=== PATIENT | female | born 1980 | race Hispanic/Latino ===

== ENCOUNTER 2019-11-28 20:27 | Emergency (ER) | payer OTHER, SELFPAY ==
--- NOTE | ~2019-11-28 | XR_ITS ---
XR hand LT min 3V 11/28/2019 21:14 INDICATION: Left hand pain PROCEDURE: 3 views left hand COMPARISON: No prior studies for comparison. FINDINGS: Fracture, dislocation or subluxation is not identified. There is soft tissue swelling dorsa l to the metacarpals. No foreign bodies are identified. IMPRESSION: 1: NO ACUTE BONE OR JOINT ABNORMALITY IDENTIFIED. Reviewed, dictated and finalized at location A.
[2019-11-28 20:30] VITALS: BP 153/102; PULSE 78; RESP 15; TEMP 37.1; O2SAT 100
--- NOTE | 2019-11-28 21:23 | ED.FALL ---
HPI - Fall General Chief Complaint: Fall Stated Complaint: fall, left wrist pain Time Seen by Provider: 11/28/19 20:43 History of Present Illness HPI Narrative: Patient is a 39-year-old female who presents ER after a fall down 15-20 stairs. The gentleman was trying to move a large appliance for her, it was at the top of the stairs, the person moving it had on a feliciano and was below it, and she was behind him. Gentleman lost balance and she reached forward to study the appliance. They then both fell down the stairs with him landing on top of her. She did not lose consciousness. She did not get struck by the appliance. She was placed in a c-collar as a precaution. She reports pain and swelling to the dorsal aspect of the left hand with slight abrasion. No numbness or tingling. No neck pain. Slight achiness right low back. No additional complaints. Related Data Allergies Allergy/AdvReac Type Severity Reaction Status Date / Time erythromycin base Allergy Unknown RED RASH Verified 05/21/18 21:32 Penicillins Allergy Unknown WAS A CHILD Verified 11/05/18 14:52 Sulfa (Sulfonamide Allergy Unknown LOW HR, Verified 11/05/18 14:52 Antibiotics) LOW PLATELETS vancomycin Allergy Unknown RED RASH Verified 05/21/18 21:32 Review of Systems Review of Systems: All systems reviewed & are unremarkable except as noted in HPI and below Eyes: Eyes: Denies change in vision Cardiovascular: Cardiovascular: Denies chest pain and Denies radiating jaw, neck or arm pain Respiratory: Respiratory: Denies cough and Denies dyspnea Gastrointestinal: Gastrointestinal: Denies abdominal pain, Denies nausea and Denies vomiting Musculoskeletal: Musculoskeletal: Reports back pain (Right side paraspinal) and Denies joint swelling Comments: Right hand pain and swelling Integumentary/Breasts: Comments: Abrasion right hand Neurologic: Denies syncope, Denies headache(s), Denies focal weakness and Denies numbness PMFSH Past Medical History Medical History (Updated 11/28/19 @ 23:14 by Julius Louie MD) GERD (gastroesophageal reflux disease) Hypertension Surgical History Surgical History (Updated 11/28/19 @ 21:26 by Julius Louie MD) History of Family History Family History (Updated 11/03/18 @ 14:13 by DOCTOR UNKNOWN) Mother Hypertension Cerebrovascular accident Family history of arthritis Sibling Asthma Father Acute myocardial infarction Cerebrovascular accident Other Family history of Alzheimer's disease Family history of allergic disorder Social History Social History Smoking status: Former smoker Smoking end date: 05/25/14 Alcohol intake: current Exam Narrative: Exam Narrative: GENERAL: Well-appearing, well-nourished, and in no acute distress. HEAD: Normocephalic, atraumatic. ENT: Mucous membranes moist. NECK: Supple. Full range of motion without tenderness palpation of the midline cervical spine. CHEST: Clear to auscultation. No respiratory distress. No chest wall tenderness. HEART: Regular rate and rhythm. Normal peripheral pulses. ABDOMEN: Soft, nontender, nondistended. No visible evidence of trauma to the abdomen. EXTREMITIES: Slight swelling of the dorsum of the left hand with bruising, normal range of motion at the fingers/wrist normal strength in the left upper extremity. No other extremity injury. Back: No midline tenderness of thoracic or lumbar spine. There is mild discomfort near L5 lateral to midline on the right side without bruising or abrasion. SKIN: Warm, dry, no rash. NEURO: Alert and oriented x3. Course Course Emergency Course: Informed of results. D/c. Vital Signs Vital signs: Vital Signs Temperature 98.7 F 11/28/19 20:30 Pulse Rate 78 11/28/19 20:30 Respiratory Rate 15 11/28/19 20:30 Blood Pressure 153/102 H 11/28/19 20:30 Pulse Oximetry 100 11/28/19 20:30 Temperature 98.7 F 11/28/19 20:30 Pulse Rate 78 11/28/19 20:30 Respirat
[2019-11-28 23:32] VITALS: BP 149/92; PULSE 78; RESP 18; O2SAT 97
== END 2019-11-28 23:34 | disposition home or self-care (01) ==
PROVIDERS: Emergency Provider Emergency Medicine; PCP Internal Medicine
DX: S60.222A Contusion of left hand, initial encounter (principal); K21.9 Gastro-esophageal reflux disease without esophagitis; I10 Essential (primary) hypertension; W10.9XXA Fall (on) (from) unspecified stairs and steps, initial encounter; Z87.891 Personal history of nicotine dependence
CPT/HCPCS: 73130; 99283; L0140

== ENCOUNTER 2020-05-11 15:10 | Outpatient (CLI) | payer OTHER, SELFPAY ==
[2020-05-11 16:46] LABS: HIV 1/2 Ab P24 Ag Result Negative (Negative)
== END 2020-05-11 15:11 | disposition home or self-care (01) ==
LOC: ANHLAB 15:15
PROVIDERS: PCP Internal Medicine; Visit Provider Nurse Practitioner Family
DX: Z11.3 Encounter for screening for infections with a predominantly sexual mode of transmission (principal)
CPT/HCPCS: 36415; 86703; G0432

== ENCOUNTER 2020-05-14 15:01 | Outpatient (CLI) | payer OTHER, SELFPAY ==
[2020-05-14 18:50] LABS: Hepatitis B Surface Antigen Negative (Negative)
[2020-05-14 18:55] LABS: HAV RESULT Negative (Negative); Hepatitis B Core IgM Result Negative (Negative)
[2020-05-14 19:04] LABS: HIV 1/2 Ab P24 Ag Result Negative (Negative)
[2020-05-14 19:07] LABS: Hepatitis C Virus Antibody Negative (Negative)
[2020-05-15 09:26] LABS: Rapid Plasma Reagin Non-Reactive (NonReactive)
== END 2020-05-14 15:02 | disposition home or self-care (01) ==
LOC: ANHLAB 15:04
PROVIDERS: PCP Internal Medicine; Visit Provider Nurse Practitioner Family
DX: Z11.3 Encounter for screening for infections with a predominantly sexual mode of transmission (principal)
CPT/HCPCS: 36415; 80074; 86592; 86695; 86696; 86703; G0432

== ENCOUNTER 2021-05-26 13:56 | Emergency (ER) | payer OTHER, SELFPAY ==
--- NOTE | ~2021-05-26 | XR_ITS ---
EXAMINATION: XR chest 2V DATE: 05/26/2021 15:40 INDICATION: Cough. COVID-19 pneumonia. TECHNIQUE: Frontal and lateral views of the chest were obtained. COMPARISON: Chest 2 views 08/01/2017 FINDINGS: The chest demonstrates clear lungs without pneumonia, pleural effusion, or pneumothorax. Th e heart size is normal. IMPRESSION: 1. No acute cardiopulmonary disease. Reviewed, dictated and finalized at location A. [employer]
[2021-05-26 14:32] VITALS: BP 137/90; PULSE 84; RESP 16; TEMP 36.3; O2SAT 100
--- NOTE | 2021-05-26 15:32 | ED.GENADULT ---
HPI - General Adult General Chief complaint: Upper Respiratory Infection Stated complaint: cough,diarrhea,loss of taste and smell Source: patient Mode of arrival: ambulatory Limitations: no limitations History of Present Illness HPI narrative: Patient presents for evaluation of respiratory symptoms for last 6 days. She initially had a sore throat and developed a headache, cough and diarrhea. She has fluctuated between hot flashes and chills. She has experienced some nausea. She had an episode of vomiting that she attributes to taking abx on empty stomach. She has a hx of recurrent abscess formations. She was recently on doxycycline. She has completed that therapy. She does not have an abscess at the present time. She has diminished sense of smell and taste. She spent the holidays with her family and her sister, with whom she spent time, has influenza. She does smoke a 1/4 pack per day. She has received [employer] vaccination Related Data Home Medications Medication Instructions Recorded Confirmed lisinopril-hydrochlorothiazide 1 tablet PO DAILY 05/26/21 05/26/21 omeprazole 20 mg PO DAILY 05/26/21 05/26/21 Allergies Allergy/AdvReac Type Severity Reaction Status Date / Time erythromycin base Allergy Unknown RED RASH Verified 05/26/21 14:30 Penicillins Allergy Unknown WAS A CHILD Verified 05/26/21 14:30 Sulfa (Sulfonamide Allergy Unknown LOW HR, Verified 05/26/21 14:30 Antibiotics) LOW PLATELETS vancomycin Allergy Unknown RED RASH Verified 05/26/21 14:30 Review of Systems Review of Systems: CONSTITUTIONAL: Reports hot flashes and chills. Denies objective fever. EYES: Denies visual changes, redness, or discharge. ENT: Reports sore throat. Denies congestion. CARDIOVASCULAR: Denies chest pain, palpitations, or edema. RESPIRATORY: Reports cough. Denies shortness of breath. GASTROINTESTINAL: Reports nausea with one episode of vomiting. Reports diarrhea. Denies abdominal pain. GENITOURINARY: Denies dysuria or hematuria. SKIN: Denies rash or itching. MUSCULOSKELETAL: Denies back pain, joint pain, or myalgia. NEUROLOGIC: Denies headache, numbness, dizziness, or weakness. PSYCHIATRIC: Denies anxiety or depression. [facility] Past Medical History Medical History GERD (gastroesophageal reflux disease) Hypertension Surgical History Surgical History History of Family History Family History Mother Hypertension Cerebrovascular accident Family history of arthritis Sibling Asthma Father Acute myocardial infarction Cerebrovascular accident Other Family history of Alzheimer's disease Family history of allergic disorder Social History Social History Smoking status: Former smoker Smoking end date: 05/25/14 Alcohol intake: current Exam Narrative: GENERAL: Well-appearing, well-nourished, and in no acute distress. HEAD: Normocephalic, atraumatic. EYES: PERRLA and EOMI. ENT: Nares clear, no rhinorrhea or epistaxis. Mucous membranes moist. Oropharynx without tonsillar hypertrophy exudate or other lesions. Bilateral TMs pearly mary nonbulging NECK: Supple. No adenopathy or masses. No carotid bruits or JVD CHEST: Clear to auscultation. No respiratory distress. No wheezes rales or rhonchi HEART: Regular rate and rhythm. No murmur heard. Normal peripheral pulses. ABDOMEN: Soft, nontender, nondistended, normal active bowel sounds. EXTREMITIES: Normal range of motion. No edema. SKIN: Warm, dry, no rash. NEURO: No focal deficits. Alert and oriented x3. PSYCH: Normal mood and affect. Course Course Emergency Course: This is a 40-year-old female who presented with complaints of respiratory symptoms. Rapid Covid was positive, strep and flu were negative. C
== END 2021-05-26 16:00 | disposition home or self-care (01) ==
PROVIDERS: Emergency Provider Nurse Practitioner; PCP Nurse Practitioner Family
DX: U07.1 COVID-19 (principal); Z87.891 Personal history of nicotine dependence; K21.9 Gastro-esophageal reflux disease without esophagitis; I10 Essential (primary) hypertension
CPT/HCPCS: 71046; 87081; 87426; 87804; 87880; 99213; C9803; G0463

== ENCOUNTER → 2021-06-12 01:18 | Outpatient (CLI) | payer OTHER, SELFPAY ==
[2021-06-12 21:10] LABS: SARS-CoV-2 RNA PCR Negative
== END ==
PROVIDERS: PCP Nurse Practitioner Family; Visit Provider Nurse Practitioner Family
DX: Z20.822 Contact with and (suspected) exposure to COVID-19 (principal)
CPT/HCPCS: C9803; U0003; U0005

== ENCOUNTER 2022-02-03 19:01 | Emergency (ER) | payer OTHER, SELFPAY ==
[2022-02-03 19:13] VITALS: BP 152/100; PULSE 96; RESP 16; TEMP 36.6; O2SAT 100
--- NOTE | 2022-02-03 21:51 | ED.DENTAL ---
HPI - Dental/Oral General Chief complaint: Dental/Oral Stated complaint: dental absess Time Seen by Provider: 02/03/22 21:39 History of Present Illness HPI Narrative: Patient is a 41-year-old female who presents ER with dental pain. Left lower jaw lateral of tooth #19. No fever chills or sweats. No difficulty breathing or swallowing. Had taken a course of doxycycline without improvement. She does not have a dentist. Related Data Home Medications Medication Instructions Recorded Confirmed lisinopril 20 1 tablet PO DAILY 05/26/21 05/26/21 mg-hydrochlorothiazide 25 mg tablet omeprazole 20 mg capsule,delayed 20 mg PO DAILY 05/26/21 05/26/21 release Allergies Allergy/AdvReac Type Severity Reaction Status Date / Time erythromycin base Allergy Unknown RED RASH Verified 05/26/21 14:30 Penicillins Allergy Unknown WAS A CHILD Verified 05/26/21 14:30 Sulfa (Sulfonamide Allergy Unknown LOW HR, Verified 05/26/21 14:30 Antibiotics) LOW PLATELETS vancomycin Allergy Unknown RED RASH Verified 05/26/21 14:30 Review of Systems Constitutional: Constitutional: Denies chills and Denies fever(s) ENT: Denies dysphagia, Denies nasal congestion and Denies sore throat Comments: Dental pain PMFSH Past Medical History Medical History GERD (gastroesophageal reflux disease) Hypertension Surgical History Surgical History History of Family History Family History Mother Hypertension Cerebrovascular accident Family history of arthritis Sibling Asthma Father Acute myocardial infarction Cerebrovascular accident Other Family history of Alzheimer's disease Family history of allergic disorder Social History Social History Smoking status: Former smoker Smoking end date: 05/25/14 Alcohol intake: current Exam Narrative: GENERAL: Well-appearing, well-nourished, and in no acute distress. HEAD: Normocephalic, atraumatic. ENT: Mucous membranes moist. Slight swelling left lower jaw and fullness near tooth #19 with tenderness. NECK: Supple. NEURO: Alert and oriented x3. PSYCH: Normal mood and affect. Course Course Emergency Course: Will place patient on cephalexin. Discussed that she needs to follow-up with a dentist Vital Signs Vital signs: Vital Signs Temperature 97.8 F 02/03/22 19:13 Pulse Rate 96 02/03/22 19:13 Respiratory Rate 16 02/03/22 19:13 Blood Pressure 152/100 H 02/03/22 19:13 Pulse Oximetry 100 02/03/22 19:13 Oxygen Delivery Room Air 02/03/22 19:13 Temperature 97.8 F 02/03/22 19:13 Pulse Rate 96 02/03/22 19:13 Respiratory Rate 16 02/03/22 19:13 Blood Pressure 152/100 H 02/03/22 19:13 Pulse Oximetry 100 02/03/22 19:13 Oxygen Delivery Room Air 02/03/22 19:13 Discharge Plan Discharge Clinical Impression: Abscess, dental Patient Disposition: Home, Self-Care Condition: Stable Instructions: Antibiotic Form, Dental Abscess (ED) Additional Instructions: Return to the ER if you have fever over 100.4 ?F, you cannot keep down food or water, you have chest pain or shortness of breath, you have additional concerns. Please follow-up with a dentist. Prescriptions: New cephalexin 500 mg capsule 500 mg PO Q12H Qty: 14 0RF No Action omeprazole 20 mg capsule,delayed release(DR/EC) 20 mg PO DAILY lisinopril-hydrochlorothiazide 20-25 mg tablet 1 tablet PO DAILY benzonatate 100 mg capsule 100 mg PO BID PRN (Reason: cough) Qty: 20 0RF ondansetron HCl [Zofran] 4 mg tablet 4 mg PO Q8H PRN (Reason: nausea and vomiting) Qty: 15 0RF Follow-up/Referrals: Dental Referral Line [Outside] - 1 Week Hoplori,Maureen Cook APRN [Primary Care Provider] -
[2022-02-03] MEDS: CEPHALEXIN 500 MG CAPSULE PO (21:52)
== END 2022-02-03 21:58 | disposition home or self-care (01) ==
PROVIDERS: Emergency Provider Emergency Medicine; PCP Nurse Practitioner Family
DX: K04.7 Periapical abscess without sinus (principal); K21.9 Gastro-esophageal reflux disease without esophagitis; I10 Essential (primary) hypertension
CPT/HCPCS: 99283; A9270

== ENCOUNTER 2023-01-22 09:53 | Emergency (ER) | payer OTHER, SELFPAY ==
[2023-01-22 10:25] VITALS: BP 145/89; PULSE 92; RESP 19; TEMP 36.3; O2SAT 99
[2023-01-22 12:03] LABS: Influenza A QL RT-PCR Negative (Negative); Influenza B QL RT-PCR Negative (Negative); RSV RNA, RT-PCR Negative (Negative); SARS-CoV-2 RNA PCR Positive (Negative)
--- NOTE | 2023-01-22 12:06 | ED.GENADULT ---
HPI - General Adult General Chief complaint: Upper Respiratory Infection Stated complaint: covid+ Time Seen by Provider: 01/22/23 10:18 Source: patient Mode of arrival: ambulatory Limitations: no limitations History of Present Illness HPI narrative: This is a 42-year-old female who presents to the ED with chief complaint of acute URI symptoms for the past few days. Her daughter was positive for COVID recently. Patient states she had a positive home COVID test today. Reports she has runny nose, congestion, sore throat and cough. Denies fevers, chills, abdominal pain, nausea, vomiting, chest pain, shortness of breath. She is seeking a work note. Related Data Home Medications Medication Instructions Recorded Confirmed lisinopril 20 1 tablet PO DAILY 05/26/21 05/22/22 mg-hydrochlorothiazide 25 mg tablet omeprazole 20 mg capsule,delayed 20 mg PO DAILY 05/26/21 05/22/22 release Allergies Allergy/AdvReac Type Severity Reaction Status Date / Time erythromycin base Allergy Unknown RED RASH Verified 01/22/23 11:48 Penicillins Allergy Unknown WAS A CHILD Verified 01/22/23 11:48 Sulfa (Sulfonamide Allergy Unknown LOW HR, Verified 01/22/23 11:48 Antibiotics) LOW PLATELETS vancomycin Allergy Unknown RED RASH Verified 01/22/23 11:48 Review of Systems Review of Systems: All systems as dictated in [facility] Past Medical History Medical History GERD (gastroesophageal reflux disease) Hypertension Surgical History Surgical History History of Family History Family History Mother Hypertension Cerebrovascular accident Family history of arthritis Sibling Asthma Father Acute myocardial infarction Cerebrovascular accident Other Family history of Alzheimer's disease Family history of allergic disorder Social History Social History (Updated 05/22/22 @ 15:07 by Isis Aparicio MA) Years smoked: 14 Smoking status: Former smoker Tobacco type: cigarettes Smoking end date: 05/25/14 Alcohol intake: current Alcohol use details: occasionally Substance use: never Living arrangements: with family Occupation/Education: occupation Additional occupation/education comments: [employer] Gender identity (if verbalized by the patient): Female Sexual Orientation (if Verbalized by the Patient): Straight or Heterosexual Exam Narrative: GENERAL: Well-appearing, well-nourished, and in no acute distress. HEAD: Normocephalic, atraumatic. EYES: PERRLA and EOMI. ENT: Nares clear, no rhinorrhea or epistaxis. Mucous membranes moist. Oropharynx without tonsillar hypertrophy exudate or other lesions. NECK: Supple. No adenopathy or masses. CHEST: No respiratory distress. Clear to auscultation. No wheezes rales or rhonchi. 99% on room air. HEART: Regular rate and rhythm. No murmur heard. Normal peripheral pulses. ABDOMEN: Soft, nontender, nondistended, normal active bowel sounds. MSK: Normal range of motion. No edema. SKIN: Warm, dry, no rash. NEURO: Alert and oriented x3. No focal deficits. PSYCH: Normal mood and affect. Course Vital Signs Vital signs: Vital Signs Temperature 97.4 F L 01/22/23 10:25 Pulse Rate 92 01/22/23 10:25 Respiratory Rate 19 01/22/23 10:25 Blood Pressure 145/89 H 01/22/23 10:25 Pulse Oximetry 99 01/22/23 10:25 Oxygen Delivery Room Air 01/22/23 10:25 Temperature 97.4 F L 01/22/23 10:25 Pulse Rate 92 01/22/23 10:25 Respiratory Rate 19 01/22/23 10:25 Blood Pressure 145/89 H 01/22/23 10:25 Pulse Oximetry 99 01/22/23 10:25 Oxygen Delivery Room Air 01/22/23 11:45 Medical Decision Making [facility] Narrative Medical decision making narrative: This is a 42-year-old female who presents to the ED with chief complaint of viral U
== END 2023-01-22 13:05 | disposition home or self-care (01) ==
PROVIDERS: Emergency Provider Physician Assistant; PCP Nurse Practitioner Family
DX: U07.1 COVID-19 (principal); I10 Essential (primary) hypertension; K21.9 Gastro-esophageal reflux disease without esophagitis; Z87.891 Personal history of nicotine dependence
CPT/HCPCS: 87637; 99283

== ENCOUNTER 2023-01-26 13:26 | Emergency (ER) | payer OTHER, SELFPAY ==
--- NOTE | ~2023-01-26 | XR_ITS ---
EXAMINATION: XR chest 2V DATE: 01/26/2023 14:31 INDICATION: Chest pain TECHNIQUE: PA and lateral views of the chest are obtained. COMPARISON: 05/26/2021 FINDINGS: The lungs are free of acute opacities. No pleural effusion or pneumothorax. The cardiomedia stinal silhouette is normal. There is moderate thoracic spondylosis. IMPRESSION: 1. No acute cardiopulmonary abnormality. Reviewed, dictated and finalized at location A.
--- NOTE | 2023-01-26 13:27 | ECG_ITS ---
Measurements Intervals [place] Rate: 89 P: 36 MN: 153 QRS: 41 QRSD: 91 T: 21 QT: 350 QTc: 427 Interpretive Statements SINUS RHYTHM POSSIBLE LEFT ATRIAL ENLARGEMENT MINIMAL Q WAVES- INFERIOR LEADS BORDERLINE ECG COMPARED TO ECG 11/08/2018 16:02:51 NO SIGNIFICANT CHANGES Electronically Signed On 01-27-2023 6:58:45 CDT by Imer Brennan D.O.
[2023-01-26 13:37] VITALS: BP 117/77; PULSE 91; RESP 16; TEMP 36.8; O2SAT 99
[2023-01-26 14:04] LABS: Basophils Percent Auto 0.3 % (0.2-1.2); Eosinophils Absolute Auto 0.1 K/mm3 (0-0.3); Hematocrit 43.3 % (37.0-47.0); Hemoglobin 14.8 g/dL (12.0-15.0); Immature Granulocyte Absolute 0.01 K/mm3 (0.00-0.031); Immature Granulocyte Percent A 0.3 % (0-0.5); Lymphocytes Absolute Auto 1.86 K/mm3 (0.9-3.2); Lymphocytes Percent Auto 61.6 % (18.3-44.2); Mean Corpuscular HGB Conc 34.2 g/dl (32-36); Mean Corpuscular Volume 87.7 fl (80-100); Mean Platelet Volume 10.2 fl (7.4-10.4); Monocytes Absolute Auto 0.1 K/mm3 (0.1-0.6); Neutrophils Absolute Auto 0.9 K/mm3 (1.3-6.7); Neutrophils Percent Auto 30.8 % (45.5-73.1); Platelet Count Result 198 k/mm3 (150-375); Red Blood Count 4.94 M/mm3 (4.2-5.4); Red Cell Distribution Width 12.8 % (11.5-14.5)
[2023-01-26 14:14] LABS: Alanine Aminotransferase 27 U/L (6-35); Albumin Level 4.6 g/dL (3.5-5.1); Alkaline Phosphatase 52 U/L (38-126); Anion Gap 12 mmol/L (8-16); Aspartate Amino Transferase 29 U/L (14-36); Bilirubin,Total 0.7 mg/dL (0.2-1.3); Blood Urea Nitrogen 11 mg/dL (7-17); Calcium 9.2 mg/dL (8.4-10.2); Carbon Dioxide 25 mmol/L (22-30); Chloride 100 mmol/L (98-107); Estimated CRCL calculation 87 ml/min; Estimated Glomerular Filt Rate > 60; Glucose 131 mg/dL (65-110); Lipase 71 U/L (23-300); Potassium 3.1 mmol/L (3.4-5.0); Sodium 137 mmol/L (137-145)
[2023-01-26 14:25] LABS: Troponin I < 0.012 ng/mL (0.000-0.034)
[2023-01-26 14:27] LABS: INR 0.9; Partial Thromboplastin Time 24.5 SECONDS (22.3-36.8); Prothrombin Time 12.7 Seconds (11.1-14.7)
[2023-01-26 14:33] VITALS: PULSE 88; O2SAT 99
[2023-01-26 14:35] VITALS: BP 108/85; PULSE 87; RESP 16; O2SAT 96
[2023-01-26] MEDS: ASPIRIN 81 MG CHEWABLE TABLET 324 MG PO (14:38)
--- NOTE | 2023-01-26 16:26 | ED.GENADULT ---
HPI - General Adult General Chief complaint: Chest Pain Stated complaint: chest pain Time Seen by Provider: 01/26/23 14:21 History of Present Illness HPI narrative: Patient is a 42-year-old female who presents ER with left-sided chest pain. Occurred yesterday and was sharp and intense and lasted for 12 seconds. She had an additional bout today that was less intense but continue to wear your her. Patient has had COVID for the last 5 to 7 days. No fevers or chills or sweats. No productive cough. No hemoptysis. She is found no modifying factors. She reports she was quite anxious when she had this pain and had been busy cleaning things. No personal history of heart disease. Related Data Home Medications Medication Instructions Recorded Confirmed lisinopril 20 1 tablet PO DAILY 05/26/21 05/22/22 mg-hydrochlorothiazide 25 mg tablet omeprazole 20 mg capsule,delayed 20 mg PO DAILY 05/26/21 05/22/22 release Allergies Allergy/AdvReac Type Severity Reaction Status Date / Time erythromycin base Allergy Unknown RED RASH Verified 01/26/23 14:40 Penicillins Allergy Unknown WAS A CHILD Verified 01/26/23 14:40 Sulfa (Sulfonamide Allergy Unknown LOW HR, Verified 01/26/23 14:40 Antibiotics) LOW PLATELETS Review of Systems Review of Systems: All systems reviewed & are unremarkable except as noted in HPI and below Constitutional: Constitutional: Denies chills, Denies fatigue and Denies fever(s) ENT: Denies nasal congestion and Denies sore throat Cardiovascular: Cardiovascular: Reports chest pain, Denies rapid heart rate and Denies radiating jaw, neck or arm pain Respiratory: Respiratory: Denies cough and Denies dyspnea Gastrointestinal: Gastrointestinal: Denies abdominal pain, Denies nausea and Denies vomiting [facility] Past Medical History Medical History GERD (gastroesophageal reflux disease) Hypertension Surgical History Surgical History History of Family History Family History Mother Hypertension Cerebrovascular accident Family history of arthritis Sibling Asthma Father Acute myocardial infarction Cerebrovascular accident Other Family history of Alzheimer's disease Family history of allergic disorder Social History Social History (Updated 05/22/22 @ 15:07 by Isis Aparicio MA) Years smoked: 14 Smoking status: Former smoker Tobacco type: cigarettes Smoking end date: 05/25/14 Alcohol intake: current Alcohol use details: occasionally Substance use: never Living arrangements: with family Occupation/Education: occupation Additional occupation/education comments: [employer] Gender identity (if verbalized by the patient): Female Sexual Orientation (if Verbalized by the Patient): Straight or Heterosexual Exam Narrative: GENERAL: Well-appearing, well-nourished, and in no acute distress. HEAD: Normocephalic, atraumatic. CHEST: Clear to auscultation. No respiratory distress. HEART: Regular rate and rhythm. Normal peripheral pulses. ABDOMEN: Soft, nontender, nondistended. EXTREMITIES: Normal range of motion. No edema. SKIN: Warm, dry, no rash. NEURO: Alert and oriented x3. PSYCH: Normal mood and affect. Course Course Emergency Course: Patient resting comfortably. No pain while she was here. Troponin negative. No tachycardia or hypoxia. Patient was without hemoptysis. No pain with deep breath. Patient felt to have a PE. Chest x-ray without pneumonia. Symptoms likely related to pleurisy or musculoskeletal chest pain. Discussed anti-inflammatory medications for home. Discharge. Vital Signs Vital signs: Vital Signs Temperature 98.2 F 01/26/23 13:37 Pulse Rate 91 01/26/23 13:37 Respiratory Rate 16 01/26/23 13:37 Blood Pressure 117/77
[2023-01-26 16:34] VITALS: BP 107/78; PULSE 76; RESP 18; O2SAT 99
== END 2023-01-26 16:36 | disposition home or self-care (01) ==
PROVIDERS: Emergency Provider Emergency Medicine; PCP Nurse Practitioner Family
DX: R09.1 Pleurisy (principal); K21.9 Gastro-esophageal reflux disease without esophagitis; I10 Essential (primary) hypertension
CPT/HCPCS: 36415; 71046; 80053; 83690; 84484; 85025; 85610; 85730; 93005; 99284; A9270

== ENCOUNTER 2023-07-08 20:52 | Emergency (ER) | payer OTHER, SELFPAY ==
[2023-07-08 21:10] VITALS: BP 150/98; PULSE 88; RESP 15; TEMP 36.3; O2SAT 100
--- NOTE | 2023-07-08 23:03 | ED.GENADULT ---
HPI - General Adult General Chief complaint: Dental/Oral Stated complaint: dental pain Time Seen by Provider: 07/08/23 22:39 Source: patient Mode of arrival: ambulatory Limitations: no limitations History of Present Illness HPI narrative: This is a 42-year-old female who presents to the ED with chief complaint of left lower dental discomfort and swelling ongoing for the past couple of months. Reports she has been seen by her primary care and dentist for this problem. She has been advised that the tooth needs to come out for definitive management. Patient states that she is currently undergoing bankruptcy cannot afford to have this done. Denies any significant pain, trouble swallowing, trismus or drooling. Denies fevers, chills, nausea, vomiting. Right plantar foot pain. Worse throughout the day and when she is on her feet for a long time. Wants to make sure that the infection is spreading and going to her foot. Related Data Home Medications Medication Instructions Recorded Confirmed lisinopril 20 1 tablet PO DAILY 05/26/21 03/27/23 mg-hydrochlorothiazide 25 mg tablet omeprazole 20 mg capsule,delayed 20 mg PO DAILY 05/26/21 03/27/23 release ergocalciferol (vitamin D2) 50 mcg 50 mcg PO DAILY 01/29/23 03/27/23 (2,000 unit) capsule Allergies Allergy/AdvReac Type Severity Reaction Status Date / Time erythromycin base Allergy Unknown RED RASH Verified 07/08/23 21:14 Penicillins Allergy Unknown WAS A CHILD Verified 07/08/23 21:14 Sulfa (Sulfonamide Allergy Unknown LOW HR, Verified 07/08/23 21:14 Antibiotics) LOW PLATELETS Review of Systems Review of Systems: All systems as dictated in [facility] Past Medical History Medical History (Updated 07/09/23 @ 00:00 by Gay Quinn) GERD (gastroesophageal reflux disease) Hypertension Surgical History Surgical History History of Family History Family History Mother Hypertension Cerebrovascular accident Family history of arthritis Sibling Asthma Father Acute myocardial infarction Cerebrovascular accident Other Family history of Alzheimer's disease Family history of allergic disorder Social History Social History (Updated 05/22/22 @ 15:07 by Isis Aparicio MA) Years smoked: 14 Smoking status: Current every day smoker Tobacco type: cigarettes Smoking end date: 05/25/14 Alcohol intake: current Alcohol use details: occasional Substance use: never Substance use type: does not use Living arrangements: with family Occupation/Education: occupation Additional occupation/education comments: [employer] Gender identity (if verbalized by the patient): Female Sexual Orientation (if Verbalized by the Patient): Straight or Heterosexual Spiritual care concerns: No Exam Narrative: GENERAL: Well-appearing, well-nourished, and in no acute distress. HEAD: Normocephalic, atraumatic. EYES: PERRLA and EOMI. ENT: Mild gingival inflammation Mild left sub mandible swelling. Minimal tenderness. Floor of the mouth intact. No trismus or drooling. Airway intact Nares clear, no rhinorrhea or epistaxis. Mucous membranes moist. Oropharynx without tonsillar hypertrophy exudate or other lesions. NECK: Supple. No adenopathy or masses. CHEST: No respiratory distress. Clear to auscultation. No wheezes rales or rhonchi HEART: Regular rate and rhythm. No murmur heard. Normal peripheral pulses. ABDOMEN: Soft, nontender, nondistended, normal active bowel sounds. MSK: Normal range of motion. No edema. Mild tenderness to the plantar right foot. No skin changes or warmth. SKIN: Warm, dry, no rash. NEURO: Alert and oriented x3. No focal deficits. PSYCH: Normal mood and affect. Course Vital Signs Vital signs: Vital Signs Temperature 97.3 F L 07/08/23 21:10 Pulse Rate 88
[2023-07-08 23:39] VITALS: BP 137/92; PULSE 77; RESP 15; O2SAT 98
== END 2023-07-08 23:40 | disposition home or self-care (01) ==
LOC: ANHED 23:18
PROVIDERS: Emergency Provider Physician Assistant; PCP Nurse Practitioner Family
DX: K04.7 Periapical abscess without sinus (principal); F17.210 Nicotine dependence, cigarettes, uncomplicated; I10 Essential (primary) hypertension; K21.9 Gastro-esophageal reflux disease without esophagitis
CPT/HCPCS: 99283

== ENCOUNTER 2024-04-19 21:17 | Emergency (ER) | payer OTHER, SELFPAY ==
[2024-04-19 21:25] VITALS: BP 151/96; PULSE 86; RESP 16; TEMP 36.6; O2SAT 98
[2024-04-20] LABS: Basophils Percent Auto 0.5 % (0.2-1.2); Eosinophils Absolute Auto 0.2 K/mm3 (0-0.3); Eosinophils Percent Auto 2.7 % (0-4.4); Hematocrit 38.9 % (37.0-47.0); Hemoglobin 13.6 g/dL (12.0-15.0); Immature Granulocyte Absolute 0.01 K/mm3 (0.00-0.031); Immature Granulocyte Percent A 0.2 % (0-0.5); Lymphocytes Absolute Auto 2.93 K/mm3 (0.9-3.2); Lymphocytes Percent Auto 50.1 % (18.3-44.2); Mean Corpuscular Hemoglobin 29.7 pg (26-34); Mean Corpuscular Volume 84.9 fl (80-100); Mean Platelet Volume 9.6 fl (7.4-10.4); Monocytes Absolute Auto 0.3 K/mm3 (0.1-0.6); Monocytes Percent Auto 5.8 % (2.6-8.5); Neutrophils Absolute Auto 2.4 K/mm3 (1.3-6.7); Neutrophils Percent Auto 40.7 % (45.5-73.1); Platelet Count Result 216 k/mm3 (150-375); Red Blood Count 4.58 M/mm3 (4.2-5.4); Red Cell Distribution Width 12.9 % (11.5-14.5); White Blood Count 5.9 K/mm3 (4.5-10.0)
[2024-04-20 00:10] LABS: Alanine Aminotransferase 30 U/L (6-35); Albumin Level 4.4 g/dL (3.5-5.1); Alkaline Phosphatase 53 U/L (38-126); Anion Gap 9 mmol/L (4-12); Aspartate Amino Transferase 22 U/L (14-36); Bilirubin,Total 0.7 mg/dL (0.2-1.3); Blood Urea Nitrogen 14 mg/dL (7-17); Calcium 8.9 mg/dL (8.4-10.2); Carbon Dioxide 25 mmol/L (22-30); Chloride 101 mmol/L (98-107); Estimated Glomerular Filt Rate > 60; Glucose 105 mg/dL (65-110); Potassium 3.7 mmol/L (3.4-5.0); Sodium 135 mmol/L (137-145)
[2024-04-20 00:27] LABS: D Dimer 0.32 ug/mL (<0.48)
--- NOTE | 2024-04-20 01:51 | ED_ITS ---
HPI - General Adult General Chief complaint: Unspecified Stated complaint: L calf pain Time Seen by Provider: 04/20/24 01:48 History of Present Illness HPI narrative: Patient is a 43-year-old female emergency department chief complaint left leg. Patient reports that for 3 days she has been having pain back left calf. Patient denies chest pain denies shortness of breath reports also had some pain in the left elbow patient reports she chronically has swelling in her ankles but this is not new has not changed. Related Data Home Medications Medication Instructions Recorded Confirmed lisinopril 20 1 tablet PO DAILY 05/26/21 03/27/23 mg-hydrochlorothiazide 25 mg tablet omeprazole 20 mg capsule,delayed 20 mg PO DAILY 05/26/21 03/27/23 release ergocalciferol (vitamin D2) 50 mcg 50 mcg PO DAILY 01/29/23 03/27/23 (2,000 unit) capsule Allergies Allergy/AdvReac Type Severity Reaction Status Date / Time erythromycin base Allergy Unknown RED RASH Verified 04/19/24 21:17 Penicillins Allergy Unknown WAS A CHILD Verified 04/19/24 21:17 Sulfa (Sulfonamide Allergy Unknown LOW HR, Verified 04/19/24 21:17 Antibiotics) LOW PLATELETS Review of Systems Review of Systems: A 10 system review of systems was completed on the patient and is negative except for what is stated in the HPI. Nursing and ancillary documentation was reviewed. [facility] Past Medical History Medical History GERD (gastroesophageal reflux disease) Hypertension Surgical History Surgical History History of Family History Family History Mother Hypertension Cerebrovascular accident Family history of arthritis Sibling Asthma Father Acute myocardial infarction Cerebrovascular accident Other Family history of Alzheimer's disease Family history of allergic disorder Social History Social History Years smoked: 14 Smoking status: Current every day smoker Tobacco type: cigarettes Smoking end date: 05/25/14 Alcohol intake: current Alcohol use details: occasional Substance use: never Substance use type: does not use Living arrangements: with family Occupation/Education: occupation Additional occupation/education comments: [employer] 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 HEAD: Normocephalic, atraumatic. EYES: PERRLA and EOMI. ENT: Nares clear, no rhinorrhea or epistaxis. Mucous membranes moist. NECK: Supple. CHEST: Clear to auscultation. No respiratory distress. HEART: Regular rate and rhythm. No murmur heard. Normal peripheral pulses. ABDOMEN: Soft, nontender, nondistended, normal active bowel sounds. EXTREMITIES: Normal range of motion mild tenderness to palpation left calf no significant swelling no erythema. Trace edema of bilateral ankles. SKIN: Warm, dry, no rash. NEURO: No focal deficits. Alert and oriented x3. PSYCH: Normal mood and affect. Course Vital Signs Vital signs: Vital Signs Temperature 36.6 C 04/19/24 21: Pulse Rate 86 04/19/24 21: Respiratory Rate 16 04/19/24 21: Blood Pressure 151/96 H 04/19/24 21: Pulse Oximetry 98 04/19/24 21: Temperature 36.6 C 04/19/24 21: Pulse Rate 86 04/19/24 21: Respiratory Rate 16 04/19/24 21:25 Blood Pressure 151/96 H 04/19/24 21: Pulse Oximetry 98 04/19/24 21:25 Medical Decision Making MDM Narrative Medical decision making narrative: Differential diagnosis includes lower extremity pain electrolyte abnormality, DVT D-dimer was 0.32 which is negative patient will be set up for a ultrasound in the morning at 7:30 a.m. the patient should return patient was not given a dose of Lovenox since her D-dimer was negative. Chief Vital Signs Vital Signs: Vital Signs Temperature 36.6 C 04/19/24 21: Pulse Rate 86 04/19/24 21:25 Respiratory Rate 16 04/19/24 21:25 Blood Pressure 151/96 H 04/19/24 21: Pulse Oximetry 98 04/19/24: Temperature 36.6 C 04/19/24: Pulse Rate 86 04/19/24 21:25 Respiratory Rate 16 04/19/24 21:25 Blood Pressure 151/96 H 04/19/24 21:25 Pulse Oximetry 98 04/19/24 21:25 Lab Data 04/19/24 23:55 04/19/24 23:55 Labs: Lab Results 04/19/24 Range/Units 23:55 WBC 5.9 (4.5-10.0) K/mm3 RBC 4.58 (4.2-5.4) M/mm3 Hgb 13.6 (12.0-15.0) g/dL Hct 38.9 (37.0-47.0) % MCV 84.9 (80-100) fl MCH 29.7 (26-34) pg MCHC 35.0 (32-36) g/dl RDW 12.9 (11.5-14.5) % Plt Count 216 (150-375) k/mm3 MPV 9.6 (7.4-10.4) fl Immature Gran % (Auto) 0.2 (0-0.5) % Neut % (Auto) 40.7 L (45.5-73.1) % Lymph % (Auto) 50.1 H (18.3-44.2) % [place] % (Auto) 5.8 (2.6-8.5) % Eos % (Auto) 2.7 (0-4.4) % Baso % (Auto) 0.5 (0.2-1.2) % Lymph # (Auto) 2.93 (0.9-3.2) K/mm3 [place] # (Auto) 0.3 (0.1-0.6) K/mm3 Eos # (Auto) 0.2 (0-0.3) K/mm3 Baso # (Auto) 0.0 (0.0-0.1) K/mm3 Abs Immat Gran (auto) 0.01 (0.00-0.031) K/mm3 Absolute Neuts (auto) 2.4 (1.3-6.7) K/mm3 Absolute Nucleated RBC 0.000 (0.0-0.012) K/mm3 Nucleated RBC % 0.0 (0.0-0.2) % D-Dimer 0.32 (<0.48) ug/mL Sodium 135 L (137-145) mmol/L Potassium 3.7 (3.4-5.0) mmol/L Chloride 101 (98-107) mmol/L Carbon Dioxide 25 (22-30) mmol/L Anion Gap 9 (4-12) mmol/L BUN 14 (7-17) mg/dL Creatinine 0.70 (0.7-1.0) mg/dL Estim Creat Clear Calc Not Reportable Estimated GFR > 60 (59 - ) Glucose 105 (65-110) mg/dL Calcium 8.9 (8.4-10.2) mg/dL Total Bilirubin 0.7 (0.2-1.3) mg/dL AST 22 (14-36) U/L ALT 30 (6-35) U/L Alkaline Phosphatase 53 (38-126) U/L Total Protein 8.0 (6.3-8.2) g/dL Albumin 4.4 (3.5-5.1) g/dL Discharge Plan Discharge Clinical Impression: Left leg pain Patient Disposition: Home, Self-Care Condition: Stable Instructions: Antibiotic Form, Leg Pain (ED) Additional Instructions: Please return to Radiology in the morning for a 730 ultrasound of your leg this to evaluate for the possibility of blood clot. Prescriptions: No Action omeprazole 20 mg capsule,delayed release(DR/EC) 20 mg PO DAILY lisinopril-hydrochlorothiazide 20-25 mg tablet 1 tablet PO DAILY ergocalciferol (vitamin D2) 50 mcg (2,000 unit) capsule 50 mcg PO DAILY naproxen 375 mg tablet 375 mg PO BID Qty: 14 0RF amoxicillin-pot clavulanate 875-125 mg tablet 1 tablet PO Q12H Qty: 14 0RF Follow-up/Referrals: Bernie,Maureen Cook APRN [Primary Care Provider] - Time of Disposition: 01:56
[2024-04-20 02:20] VITALS: BP 142/80; PULSE 73; RESP 15; O2SAT 99
== END 2024-04-20 02:23 | disposition home or self-care (01) ==
PROVIDERS: Emergency Provider Emergency Medicine; PCP Nurse Practitioner Family
DX: M79.662 Pain in left lower leg (principal); I10 Essential (primary) hypertension; K21.9 Gastro-esophageal reflux disease without esophagitis; Z87.891 Personal history of nicotine dependence
CPT/HCPCS: 36415; 80053; 85025; 85380; 99283

== ENCOUNTER 2024-04-20 08:48 | Outpatient (CLI) | payer OTHER, SELFPAY ==
--- NOTE | ~2024-04-20 | US_ITS ---
EXAMINATION: US venous doppler [facility] DATE: 04/20/2024 09:43 INDICATION: Left lower limb pain and swelling. TECHNIQUE: Grayscale ultrasound images without and with compression and Doppler ultrasound images of the left lower extremity veins were obtained. COMPARISON: None. FINDINGS: The visualized portions of left common femoral vein, profunda (deep) femoral vein, femoral vein, popl iteal vein, peroneal veins, posterior tibial veins, and greater saphenous vein outflow are patent. IMPRESSION: 1. No deep venous thrombosis. Reviewed, dictated and finalized at location A. [employer]
== END 2024-04-20 08:49 | disposition home or self-care (01) ==
PROVIDERS: Visit Provider Emergency Medicine
DX: M79.662 Pain in left lower leg (principal); R22.42 Localized swelling, mass and lump, left lower limb
CPT/HCPCS: 93971